=== PATIENT | male | born 1995 | race Caucasian/White ===

== ENCOUNTER 2022-03-24 20:18 | Emergency (ER) | payer SELFPAY ==
[~2022-03-24] VITALS: Ht 175.3 cm; Wt 80.0 kg
[2022-03-25 05:30] VITALS: BP 142/104
[2022-03-25] MEDS ORDERED: OMEP20CA14 MT ×3 (06:04→06:08)
== END 2022-03-25 06:52 | disposition home or self-care (01) ==
LOC: ER 20:18
DX: R10.13 Epigastric pain (principal)
CPT/HCPCS: 71045; 93005; 99283